=== PATIENT | male | born 1985 | race Hispanic/Latino ===

== ENCOUNTER 2016-10-29 15:55 | Emergency (ER) | payer SELFPAY ==
[2016-10-29] MEDS ORDERED: CHLORHEXIDINE GLUCONATE 4 % 15 ML UD TOP ONE (15:58)
[2016-10-29] MEDS ORDERED: LIDOCAINE 1% W/ EPINEPHRINE 20 ML VIAL INJ ONE (16:03)
[2016-10-29 16:18] VITALS: TEMP 97; O2SAT 98
[2016-10-29] MEDS ORDERED: TETANUS,DIPHTHERIA,PERTUSSIS 1 EA SYG IM ONE (16:28)
[2016-10-29] MEDS ORDERED: SULFA/TRIMETH 800/160 (DS) TAB 1 EA TAB PO ONE (16:28)
--- NOTE | 2016-10-29 16:31 | ED.PDOC ---
History of Present Illness - General Chief Complaint: Lower Extremity Injury Stated Complaint: laceration to left knee Time Seen by Provider: 10/29/16 16:28 Source: patient Exam Limitations: no limitations - History of Present Illness Initial Comments: The patient is a 31-year-old male presenting to the emergency room secondary to sustaining a laceration to his left proximal tibia. This occurred when he was working on a dock and fell into the water and scraped his upper tibia on a piece of metal. He sustained a V-shaped tear through the skin into the subcutaneous tissue that is approximately 1.5 inches on each arm of the therapy. He does not appear to have penetrated the joint space of the knee. He does appear to be neurovascularly intact distally. Motor function appears to be preserved. No other injuries. He is not up-to-date on his tetanus. Occurred: just prior to arrival Pain - Lower Extremity: moderate: Left Donald Method of Injury: fell Improving Factors: nothing Worsening Factors: nothing Allergies/Adverse Reactions: Allergies NO KNOWN ALLERGY Allergy (Verified 10/29/16 16:13) Home Medications: Ambulatory Orders Sulfa/Trimeth 800/160 (Ds) Tab [Bactrim DS Tab] 1 ea PO BID #10 tab 10/29/16 Review of Systems - Review of Systems Constitutional: States: no symptoms reported EENTM: States: no symptoms reported Respiratory: States: no symptoms reported Cardiology: States: no symptoms reported Gastrointestinal/Abdominal: States: no symptoms reported Genitourinary: States: no symptoms reported Musculoskeletal: States: see HPI Skin: States: see HPI Neurological: States: no symptoms reported All other Systems: No Change from Baseline Past Medical History (General) - Patient Medical History Hx Seizures: No Hx Stroke: No Hx Dementia: No Hx Asthma: No Hx of COPD: No Hx Cardiac Disorders: No Hx Congestive Heart Failure: No Hx Pacemaker: No Hx Hypertension: No Hx Thyroid Disease: No Hx Diabetes: No Hx Gastroesophageal Reflux: No Hx Renal Disease: No Hx Cancer: No Hx of HIV: No Hx Hepatitis C: No Hx MRSA: No Surgical History: no surgical history - Vaccination History Hx Tetanus, Diphtheria Vaccination: Yes Hx Influenza Vaccination: No Hx Pneumococcal Vaccination: No Immunizations Up to Date: No - Social History Hx Tobacco Use: No Hx Chewing Tobacco Use: No Hx Alcohol Use: No Hx Substance Use: No Hx Substance Use Treatment: No Hx Depression: No Feels Threatened In Home Enviroment: No Feels Threatened In a Relationship: No Hx Physical Abuse: No Hx Emotional Abuse: No Hx Suspected Abuse: No - Female History Patient is a Female of Child Bearing Age (10 -59 yrs old): No Patient : No Family Medical History - Family History Mother Family History: Unknown Living Status: Still Living Physical Exam - Physical Exam General Appearance: Alert, Comfortable, No apparent distress Eyes, Ears, Nose, Throat: PERRL/EOMI Neck: full range of motion Cardiovascular/Respiratory: normal peripheral pulses, no respiratory distress Thigh/Hip: normal inspection, non-tender, no evidence of injury, normal ROM Leg: normal inspection, non-tender, no evidence of injury, normal ROM Knee: other - see history of present illness Ankle: normal inspection, non-tender, no evidence of injury Foot: normal inspection, non-tender, no evidence of injury, normal ROM Neuro/Tendon: normal sensation, normal motor functions, normal tendon functions Mental Status: alert, oriented x 3 Skin: normal color - ith the exception of a skin laceration as above Comments: Vital Signs - 24 hr 10/29/16 16:14 Temperature 97 F L Pulse Rate [ 78 Left Apical] Respiratory 20 Rate Blood Pressure 150/103 [Left Arm] O2 Sat by Pulse 98 Oximetry Progress - Progress Progress: 10/29/16 16:32 the patient is a 31-year-old male presenting to the emergency room secondary to a skin laceration to the proximal tibia. Risk and benefits were explained of the repair and the patient agrees to proceed. Tea Bag Machine Tender used. Estimated blood loss and total 15 cc. The patient appears to be neurovascularly intact prior and after the procedure. 1% Xylocaine with epinephrine was used 10 cc for local anesthetic. 700 cc of normal saline and then Hibiclens were used for clearing of the wound. Approximately 8 sutures of 3-0 Ethilon were used for reapproximation. Dressing was applied. The patient was given 1 dose of Bactrim DS here. He was given his tetanus shot here. Sutures need to come out in 10 days to 2 weeks. Monitor for any infection. ER warnings were given for any acute worsening. Departure - Departure Clinical Impression: Laceration of leg not thigh, left Qualifiers: Encounter type: initial encounter Qualified Code(s): S81.812A - Laceration without foreign body, left lower leg, initial encounter Disposition: Discharge to Home or Self Care Condition: Fair Departure Forms: ED Discharge - Pt. Copy, Patient Portal Self Enrollment Instructions: DI for Laceration Repair -- Simple Diet: regular diet Activity: increase activity as tolerated Prescriptions: Sulfa/Trimeth 800/160 (Ds) Tab [Bactrim DS Tab] 1 ea PO BID #10 tab Home Medications: Ambulatory Orders Sulfa/Trimeth 800/160 (Ds) Tab [Bactrim DS Tab] 1 ea PO BID #10 tab 10/29/16 Additional Instructions: the patient is a 31-year-old male presenting to the emergency room secondary to a skin laceration to the proximal tibia. Approximately 8 sutures of 3-0 Ethilon were used for reapproximation. The patient was given 1 dose of Bactrim DS here, and a further prescription was written. He was given his tetanus shot here. Sutures need to come out in 10 days to 2 weeks. Monitor for any infection. ER warnings were given for any acute worsening.
[2016-10-29] MEDS ORDERED: BACITRACIN-POLYMYXIN B OINT U/D PACK TOP ONE (16:39)
[2016-10-29 16:48] VITALS: BP 142/99
== END 2016-10-29 16:48 | disposition home or self-care (01) ==
LOC: ER 15:55
DX: S81.812A Laceration without foreign body, left lower leg, initial encounter (principal); Z23 Encounter for immunization; W17.4XXA Fall from dock, initial encounter; Y92.62 Dock or shipyard as the place of occurrence of the external cause; Y99.0 Civilian activity done for income or pay